=== PATIENT | female | born 1965 ===

== ENCOUNTER 2019-11-27 23:35 | Inpatient (IN) ==
[2019-11-28] MEDS ORDERED: ONDANSETRON 4 MG/2 ML VIAL IV PRN (02:17)
[2019-11-28] MEDS ORDERED: PANTOPRAZOLE 40 MG VIAL IV STA (02:47)
[2019-11-28] MEDS: MORPHINE 4 MG/1 ML VIAL IV PRN (03:03)
[2019-11-28] MEDS ORDERED: PNEUMOCOCCAL VACCINE (23 VALENT) 0.5 ML VIAL IM ONE (03:20)
[2019-11-28] MEDS ORDERED: DOCUSATE SODIUM 100 MG CAPSULE PO PRN (03:40)
[2019-11-28] MEDS ORDERED: GLUCAGON 1 MG VIAL IM PRN (03:40)
[2019-11-28] MEDS ORDERED: DEXTROSE 50% 25 GM/50 ML VIAL IV PRN (03:40)
[2019-11-28] MEDS ORDERED: DEXTRAN HYPROMELLOSE BOTH EYES PRN (04:13)
[2019-11-28] MEDS ORDERED: guaiFENesin 200 MG/10 ML UDCUP PO PRN (04:13)
[2019-11-28] MEDS ORDERED: LOPERAMIDE 2 MG CAPSULE PO PRN (04:13)
[2019-11-28] MEDS ORDERED: MAGNESIUM SULF RIDER 4 GM in PREMIX 1 EACH IV PRN (04:14)
[2019-11-28] MEDS ORDERED: HYDROmorphone 2 MG/1 ML VIAL IV PRN (04:36)
[2019-11-28] MEDS: ENOXAPARIN 80 MG/0.8 ML SYRINGE SUBCUT SCH ×2 (05:00→17:24)
[2019-11-28] MEDS: PIPERACILLIN/TAZOBACTAM 3,375 MG in SODIUM CHLORIDE 0.9% 100 ML IV SCH ×3 (05:00→20:44)
[2019-11-28] MEDS: SODIUM CHLORIDE 0.9% 1,000 ML IV SCH ×2 (05:27→22:33)
[2019-11-28] MEDS: FLUTICASONE 50 MCG NASAL SPRAY 16 GM BOTTLE BOTH NARES SCH (08:30)
[2019-11-28] MEDS: lisinopriL 20 MG TABLET PO SCH (08:31)
[2019-11-28] MEDS: CHOLECALCIFEROL 1,000 UNIT TABLET PO SCH (08:31)
[2019-11-28] MEDS: GABAPENTIN 300 MG CAPSULE PO SCH ×3 (08:31→20:19)
[2019-11-28] MEDS: PANTOPRAZOLE 40 MG VIAL IV SCH (08:31)
[2019-11-28] MEDS: POTASSIUM CHLORIDE 20 MEQ TABLET PO SCH (08:32)
[2019-11-28] MEDS: CETIRIZINE 10 MG TABLET PO SCH (08:32)
[2019-11-28] MEDS: ASPIRIN CHEW 81 MG TABLET PO SCH (08:32)
[2019-11-28] MEDS: ZINC SULFATE 220 MG CAPSULE PO SCH (08:32)
[2019-11-28] MEDS: INSULIN LISPRO 100 UNIT/ML SUBCUT SCH ×4 (08:33→20:18)
[2019-11-28] MEDS: HYDROXYCHLOROQUINE 200 MG TABLET PO SCH ×2 (08:36→20:19)
[2019-11-28] MEDS: TOBRAMYCIN DEXAMETHASONE BOTH EYES SCH ×4 (08:54→21:32)
[2019-11-28] MEDS ORDERED: ENOXAPARIN 40 MG/0.4 ML SYRINGE SUBCUT SCH (09:00)
[2019-11-28] MEDS: ALBUTEROL INHALER 18 GM INH SCH ×3 (09:29→20:41)
[2019-11-28] MEDS: PROMETHAZINE INJ 25 MG in SODIUM CHLORIDE 0.9% 50 ML IV PRN (10:19)
[2019-11-28 10:46] LABS: Basophils % 0.2 % (0.0-0.8); Eosinophils % 0.2 % (0.00-10.9); Hemoglobin 12.6 GM/DL (12.0-16.0); Immature Granulocytes % 0.4 %; Immature Granulocytes Absolute 0.02 #; Lymphocytes # 1.2 10*3/uL (1.4-4.0); Lymphocytes % 24.3 % (21.3-54.2); Mean Corpuscular HGB Conc 34.1 GM/DL (32-36); Mean Corpuscular Volume 90.2 FL (87-102); Monocytes % 4.6 % (1.7-12.7); Neutrophils % 70.3 % (38.7-73.9); Platelet Count 159 T/CUMM (130-400); Red Cell Distribution Width 12.6 % (9.3-17.3); White Blood Count 4.8 T/CUMM (4-12)
[2019-11-28 11:09] LABS: Lymphocytes 21 % (20-55); Segmented Neutrophils 73 % (50-85); Total Cells Counted 100
[2019-11-28 11:10] LABS: Microcytosis Slight
[2019-11-28 11:13] LABS: Albumin 2.7 G/DL (3.4-5.0); Bilirubin,Total 1.2 MG/DL (0.2-1.0); Osmolality,Calculated 268.8 MOS/KG (273-304); Total Protein 7.6 G/DL (6.4-8.3)
[2019-11-28 11:25] LABS: Ferritin 1485.6 ng/ml (8-252)
[2019-11-28] MEDS: MAGNESIUM SULF RIDER 2 GM in PREMIX 1 EACH IV PRN (11:43)
[2019-11-28] MEDS: POTASSIUM CHLORIDE RIDER 10 MEQ in PREMIX 1 EACH IV PRN ×4 (16:03→20:18)
[2019-11-28] MEDS: ACETAMINOPHEN 325 MG TABLET PO PRN (16:21)
[2019-11-28] MEDS: INSULIN GLARGINE 100 UNIT/ML SUBCUT SCH (20:18)
[2019-11-28] MEDS: SIMVASTATIN 20 MG TABLET PO SCH (20:19)
[2019-11-29] MEDS: ALBUTEROL INHALER 18 GM INH SCH ×4 (01:55→20:53)
[2019-11-29] MEDS: ENOXAPARIN 80 MG/0.8 ML SYRINGE SUBCUT SCH (04:40)
[2019-11-29] MEDS: PIPERACILLIN/TAZOBACTAM 3,375 MG in SODIUM CHLORIDE 0.9% 100 ML IV SCH ×2 (04:40→12:32)
[2019-11-29 05:40] LABS: Basophils % 0.2 % (0.0-0.8); Eosinophils % 0.4 % (0.00-10.9); Hematocrit 33.4 VOL% (35.7-47.0); Hemoglobin 11.1 GM/DL (12.0-16.0); Immature Granulocytes % 0.6 %; Immature Granulocytes Absolute 0.03 #; Lymphocytes # 1.1 10*3/uL (1.4-4.0); Lymphocytes % 21.5 % (21.3-54.2); Mean Corpuscular HGB Conc 33.2 GM/DL (32-36); Mean Platelet Volume 9.7 FL (9.6-12.0); Monocytes % 5.3 % (1.7-12.7); Platelet Count 170 T/CUMM (130-400); Red Blood Count 3.63 MC/CUMM (3.8-5.5); Red Cell Distribution Width 12.6 % (9.3-17.3); White Blood Count 5.3 T/CUMM (4-12)
[2019-11-29 06:00] LABS: Anisocytosis Slight; Platelet Estimate Normal
[2019-11-29 06:01] LABS: Calcium 7.7 MG/DL (8.5-10.1); Osmolality,Calculated 274.5 MOS/KG (273-304)
[2019-11-29] MEDS: POTASSIUM CHLORIDE RIDER 10 MEQ in PREMIX 1 EACH IV PRN (06:15)
[2019-11-29] MEDS: INSULIN LISPRO 100 UNIT/ML SUBCUT SCH ×4 (08:14→20:46)
[2019-11-29] MEDS: CETIRIZINE 10 MG TABLET PO SCH (08:24)
[2019-11-29] MEDS: PANTOPRAZOLE 40 MG VIAL IV SCH (08:24)
[2019-11-29] MEDS: ASPIRIN CHEW 81 MG TABLET PO SCH (08:24)
[2019-11-29] MEDS: POTASSIUM CHLORIDE 20 MEQ TABLET PO SCH (08:24)
[2019-11-29] MEDS: GABAPENTIN 300 MG CAPSULE PO SCH ×3 (08:24→20:47)
[2019-11-29] MEDS: CHOLECALCIFEROL 1,000 UNIT TABLET PO SCH (08:24)
[2019-11-29] MEDS: lisinopriL 20 MG TABLET PO SCH (08:24)
[2019-11-29] MEDS: FLUTICASONE 50 MCG NASAL SPRAY 16 GM BOTTLE BOTH NARES SCH (08:25)
[2019-11-29] MEDS: TOBRAMYCIN DEXAMETHASONE BOTH EYES SCH ×4 (08:35→20:54)
[2019-11-29] MEDS ORDERED: HYDROXYCHLOROQUINE 200 MG TABLET PO SCH (09:00)
[2019-11-29] MEDS ORDERED: BENZOCAINE/MENTHOL LOZENGE 18/BOX PO PRN (09:03)
[2019-11-29] MEDS: SODIUM CHLORIDE 0.9% 1,000 ML IV SCH ×3 (10:42→20:47)
[2019-11-29] MEDS: AZITHROMYCIN 250 MG TABLET PO SCH (16:11)
[2019-11-29] MEDS: ACETAMINOPHEN 325 MG TABLET PO PRN ×2 (16:12→23:41)
[2019-11-29] MEDS: PROMETHAZINE INJ 25 MG in SODIUM CHLORIDE 0.9% 50 ML IV PRN (17:22)
[2019-11-29] MEDS: SIMVASTATIN 20 MG TABLET PO SCH (20:47)
[2019-11-29] MEDS: INSULIN GLARGINE 100 UNIT/ML SUBCUT SCH (20:49)
[2019-11-30] MEDS: ALBUTEROL INHALER 18 GM INH SCH ×4 (01:30→19:38)
[2019-11-30 05:47] LABS: Basophils % 0.2 % (0.0-0.8); Eosinophils % 0.4 % (0.00-10.9); Hematocrit 31.7 VOL% (35.7-47.0); Hemoglobin 10.4 GM/DL (12.0-16.0); Immature Granulocytes % 0.6 %; Immature Granulocytes Absolute 0.03 #; Lymphocytes # 1.1 10*3/uL (1.4-4.0); Lymphocytes % 20.5 % (21.3-54.2); Mean Corpuscular HGB Conc 32.8 GM/DL (32-36); Mean Corpuscular Volume 92.4 FL (87-102); Mean Platelet Volume 9.5 FL (9.6-12.0); Monocytes % 4.5 % (1.7-12.7); Neutrophils % 73.8 % (38.7-73.9); Platelet Count 192 T/CUMM (130-400); Red Blood Count 3.43 MC/CUMM (3.8-5.5); Red Cell Distribution Width 12.7 % (9.3-17.3); White Blood Count 5.1 T/CUMM (4-12)
[2019-11-30 06:02] LABS: Calcium 7.6 MG/DL (8.5-10.1); Osmolality,Calculated 279.1 MOS/KG (273-304)
[2019-11-30] MEDS: INSULIN LISPRO 100 UNIT/ML SUBCUT SCH ×4 (08:06→20:33)
[2019-11-30] MEDS: PANTOPRAZOLE 40 MG VIAL IV SCH (09:41)
[2019-11-30] MEDS: cefTRIAXone 1,000 MG in SYRINGE 1 EACH IV SCH (09:41)
[2019-11-30] MEDS: FLUTICASONE 50 MCG NASAL SPRAY 16 GM BOTTLE BOTH NARES SCH (09:41)
[2019-11-30] MEDS: ZINC SULFATE 220 MG CAPSULE PO SCH (09:42)
[2019-11-30] MEDS: CETIRIZINE 10 MG TABLET PO SCH (09:42)
[2019-11-30] MEDS: CHOLECALCIFEROL 1,000 UNIT TABLET PO SCH (09:42)
[2019-11-30] MEDS: lisinopriL 20 MG TABLET PO SCH (09:42)
[2019-11-30] MEDS: AZITHROMYCIN 250 MG TABLET PO SCH (09:42)
[2019-11-30] MEDS: POTASSIUM CHLORIDE 20 MEQ TABLET PO SCH (09:42)
[2019-11-30] MEDS: ASPIRIN CHEW 81 MG TABLET PO SCH (09:43)
[2019-11-30] MEDS: TOBRAMYCIN DEXAMETHASONE BOTH EYES SCH ×4 (09:43→20:33)
[2019-11-30] MEDS: GABAPENTIN 300 MG CAPSULE PO SCH ×3 (09:43→20:32)
[2019-11-30] MEDS: ENOXAPARIN 40 MG/0.4 ML SYRINGE SUBCUT SCH (09:44)
[2019-11-30] MEDS: SODIUM CHLORIDE 0.9% 1,000 ML IV SCH ×2 (09:44→10:04)
[2019-11-30] MEDS: ACETAMINOPHEN 325 MG TABLET PO PRN (16:24)
[2019-11-30] MEDS: SIMVASTATIN 20 MG TABLET PO SCH (20:32)
[2019-11-30] MEDS: INSULIN GLARGINE 100 UNIT/ML SUBCUT SCH (20:33)
[2019-11-30] MEDS: MORPHINE 4 MG/1 ML VIAL IV PRN (22:01)
[2019-11-30] MEDS ORDERED: CYCLOBENZAPRINE 10 MG TABLET PO ONE (22:42)
[2019-11-30] MEDS ORDERED: ALPRAZolam 0.25 MG TABLET PO ONE (23:09)
[2019-12-01] MEDS: ACETAMINOPHEN 325 MG TABLET PO PRN ×2 (00:01→11:10)
[2019-12-01] MEDS: ALBUTEROL INHALER 18 GM INH SCH ×4 (01:10→21:32)
[2019-12-01] MEDS ORDERED: ALPRAZolam 0.25 MG TABLET PO ONE (03:30)
[2019-12-01 06:15] LABS: Basophils % 0.1 % (0.0-0.8); Hematocrit 35.2 VOL% (35.7-47.0); Hemoglobin 11.7 GM/DL (12.0-16.0); Immature Granulocytes % 0.6 %; Immature Granulocytes Absolute 0.05 #; Lymphocytes # 0.8 10*3/uL (1.4-4.0); Lymphocytes % 8.7 % (21.3-54.2); Mean Corpuscular HGB Conc 33.2 GM/DL (32-36); Mean Corpuscular Volume 91.4 FL (87-102); Mean Platelet Volume 9.5 FL (9.6-12.0); Monocytes % 2.4 % (1.7-12.7); Neutrophils % 88.2 % (38.7-73.9); Platelet Count 227 T/CUMM (130-400); Red Blood Count 3.85 MC/CUMM (3.8-5.5); Red Cell Distribution Width 12.4 % (9.3-17.3); White Blood Count 9.1 T/CUMM (4-12)
[2019-12-01 06:37] LABS: Calcium 8.3 MG/DL (8.5-10.1); Osmolality,Calculated 270.1 MOS/KG (273-304)
[2019-12-01 08:51] LABS: Ferritin 1329.9 ng/ml (8-252)
[2019-12-01] MEDS: ENOXAPARIN 40 MG/0.4 ML SYRINGE SUBCUT SCH (09:13)
[2019-12-01] MEDS: lisinopriL 20 MG TABLET PO SCH (09:14)
[2019-12-01] MEDS: CHOLECALCIFEROL 1,000 UNIT TABLET PO SCH (09:14)
[2019-12-01] MEDS: GABAPENTIN 300 MG CAPSULE PO SCH ×3 (09:14→21:33)
[2019-12-01] MEDS: AZITHROMYCIN 250 MG TABLET PO SCH (09:14)
[2019-12-01] MEDS: CETIRIZINE 10 MG TABLET PO SCH (09:14)
[2019-12-01] MEDS: ASPIRIN CHEW 81 MG TABLET PO SCH (09:14)
[2019-12-01] MEDS: PANTOPRAZOLE 40 MG VIAL IV SCH (09:15)
[2019-12-01] MEDS: POTASSIUM CHLORIDE 20 MEQ TABLET PO SCH (09:15)
[2019-12-01] MEDS: cefTRIAXone 1,000 MG in SYRINGE 1 EACH IV SCH (09:15)
[2019-12-01] MEDS: FLUTICASONE 50 MCG NASAL SPRAY 16 GM BOTTLE BOTH NARES SCH (09:16)
[2019-12-01] MEDS: INSULIN LISPRO 100 UNIT/ML SUBCUT SCH ×4 (09:16→21:32)
[2019-12-01] MEDS: TOBRAMYCIN DEXAMETHASONE BOTH EYES SCH ×5 (09:17→21:33)
[2019-12-01] MEDS: SODIUM CHLORIDE 0.9% 1,000 ML IV SCH ×2 (11:20→14:26)
[2019-12-01 15:10] LABS: INR 1.4; PT Patient Result 14.4 SECS (9.8-11.9)
[2019-12-01] MEDS: INSULIN GLARGINE 100 UNIT/ML SUBCUT SCH (21:33)
[2019-12-01] MEDS: SIMVASTATIN 20 MG TABLET PO SCH (21:33)
[2019-12-02] MEDS: ACETAMINOPHEN 325 MG TABLET PO PRN (00:15)
[2019-12-02] MEDS: SODIUM CHLORIDE 0.9% 1,000 ML IV SCH ×3 (00:46→18:11)
[2019-12-02] MEDS: ALBUTEROL INHALER 18 GM INH SCH ×4 (01:14→18:40)
[2019-12-02 03:59] LABS: Ferritin 1044.8 ng/ml (8-252)
[2019-12-02 04:48] LABS: Calcium 7.5 MG/DL (8.5-10.1); Osmolality,Calculated 276.4 MOS/KG (273-304)
[2019-12-02] MEDS: PANTOPRAZOLE 40 MG VIAL IV SCH (08:16)
[2019-12-02] MEDS: ENOXAPARIN 40 MG/0.4 ML SYRINGE SUBCUT SCH ×2 (08:17→21:00)
[2019-12-02] MEDS: AZITHROMYCIN 250 MG TABLET PO SCH (08:17)
[2019-12-02] MEDS: cefTRIAXone 1,000 MG in SYRINGE 1 EACH IV SCH (08:17)
[2019-12-02] MEDS: CETIRIZINE 10 MG TABLET PO SCH (08:17)
[2019-12-02] MEDS: lisinopriL 20 MG TABLET PO SCH (08:17)
[2019-12-02] MEDS: ASPIRIN CHEW 81 MG TABLET PO SCH (08:17)
[2019-12-02] MEDS: CHOLECALCIFEROL 1,000 UNIT TABLET PO SCH (08:18)
[2019-12-02] MEDS: POTASSIUM CHLORIDE 20 MEQ TABLET PO SCH (08:18)
[2019-12-02] MEDS: GABAPENTIN 300 MG CAPSULE PO SCH ×3 (08:18→21:00)
[2019-12-02] MEDS: FLUTICASONE 50 MCG NASAL SPRAY 16 GM BOTTLE BOTH NARES SCH (08:27)
[2019-12-02] MEDS: ZINC SULFATE 220 MG CAPSULE PO SCH (08:27)
[2019-12-02] MEDS: TOBRAMYCIN DEXAMETHASONE BOTH EYES SCH ×5 (08:28→23:06)
[2019-12-02] MEDS: POTASSIUM CHLORIDE RIDER 10 MEQ in PREMIX 1 EACH IV PRN (08:40)
[2019-12-02] MEDS: INSULIN LISPRO 100 UNIT/ML SUBCUT SCH ×3 (09:05→17:30)
[2019-12-02 10:34] LABS: Basophils % 0.2 % (0.0-0.8); Eosinophils % 0.2 % (0.00-10.9); Hematocrit 34.8 VOL% (35.7-47.0); Hemoglobin 11.5 GM/DL (12.0-16.0); Immature Granulocytes % 0.5 %; Immature Granulocytes Absolute 0.05 #; Lymphocytes # 0.7 10*3/uL (1.4-4.0); Lymphocytes % 7.3 % (21.3-54.2); Mean Corpuscular Volume 91.3 FL (87-102); Mean Platelet Volume 9.7 FL (9.6-12.0); Monocytes % 2.5 % (1.7-12.7); Neutrophils % 89.3 % (38.7-73.9); Platelet Count 233 T/CUMM (130-400); Red Blood Count 3.81 MC/CUMM (3.8-5.5); Red Cell Distribution Width 12.9 % (9.3-17.3); White Blood Count 10.1 T/CUMM (4-12)
[2019-12-02] MEDS ORDERED: ETOMIDATE 20 MG/10 ML VIAL IV ONE ×2 (10:54→10:58)
[2019-12-02] MEDS ORDERED: SUCCINYLCHOLINE 200 MG/10 ML VIAL ONE (10:55)
[2019-12-02] MEDS ORDERED: SUCCINYLCHOLINE 200 MG/10 ML VIAL IV ONE (10:59)
[2019-12-02 11:01] LABS: Hypochromasia 1+
[2019-12-02 11:02] LABS: Microcytosis Slight; Platelet Estimate Adequate
[2019-12-02] MEDS ORDERED: NOREPINEPHRINE 4 MG/4 ML VIAL IV ONE (12:05)
[2019-12-02] MEDS: NOREPINEPHRINE 8 MG in SODIUM CHLORIDE 0.9% 242 ML IV PRN ×4 (12:10→23:23)
[2019-12-02] MEDS ORDERED: SODIUM CHLORIDE 0.9% 500 ML IV ONE ×2 (12:25→22:42)
[2019-12-02 12:26] LABS: ABG Base Excess -14.5 MMOL/L (-2.5-2.5); ABG HCO3 13.1 MMOL/L (20-26); ABG Oxygen Saturation 86.2 % (95-100); ABG PCO2 35.3 MM HG (35-48); ABG TCO2 12.3 MMOL/L (23-27)
[2019-12-02 12:30] LABS: ABG PH 7.179 (7.35-7.45)
[2019-12-02] MEDS: fentaNYL INJ 1,250 MCG in SODIUM CHLORIDE 0.9% 225 ML IV PRN (15:09)
[2019-12-02] MEDS: DEXAMETHASONE 4 MG/1 ML VIAL IV SCH (17:45)
[2019-12-02] MEDS ORDERED: SODIUM BICARBONATE 50 MEQ/50 ML VIAL IV ONE ×2 (17:50)
[2019-12-02] MEDS ORDERED: LORazepam 2 MG/1 ML VIAL ONE (18:11)
[2019-12-02] MEDS ORDERED: LORazepam 2 MG/1 ML VIAL IV ONE (18:15)
[2019-12-02 19:24] LABS: INR 1.9; PT Patient Result 19.1 SECS (9.8-11.9)
[2019-12-02 19:28] LABS: Alanine Aminotransferase 85 U/L (13-56); Albumin 1.7 G/DL (3.4-5.0); Alkaline Phosphatase 134 U/L (45-117); Aspartate Amino Transferase 418 U/L (0-37); Blood Urea Nitrogen 20 MG/DL (7-18); Calcium 7.6 MG/DL (8.5-10.1); Estimated Glom Filtration Rate 34 ML/MIN; Glucose 111 MG/DL (74-106); Osmolality,Calculated 286.1 MOS/KG (273-304); Total Protein 6.3 G/DL (6.4-8.3)
[2019-12-02] MEDS ORDERED: DEXTROSE 50% 25 GM/50 ML VIAL IV PRN (19:52)
[2019-12-02] MEDS ORDERED: GLUCAGON 1 MG VIAL IM PRN (19:52)
[2019-12-02] MEDS: SIMVASTATIN 20 MG TABLET PO SCH (21:00)
[2019-12-02] MEDS ORDERED: PHENYLEPHRINE DRIP 40 MG/250 ML PREMIX IV ONE (22:27)
[2019-12-02] MEDS ORDERED: PHENYLEPHRINE DRIP 40 MG/250 ML PREMIX IV PRN (22:27)
[2019-12-02] MEDS: INSULIN GLARGINE 100 UNIT/ML SUBCUT SCH (23:02)
[2019-12-03] MEDS: INSULIN LISPRO 100 UNIT/ML SUBCUT SCH ×4 (00:18→17:35)
[2019-12-03] MEDS: ALBUTEROL INHALER 18 GM INH SCH ×3 (01:03→12:11)
[2019-12-03] MEDS: SODIUM CHLORIDE 0.9% 1,000 ML IV SCH ×2 (01:04→05:32)
[2019-12-03] MEDS: fentaNYL INJ 1,250 MCG in SODIUM CHLORIDE 0.9% 225 ML IV PRN ×3 (01:16→17:56)
[2019-12-03] MEDS ORDERED: ALBUMIN 5% 25 GM in PREMIX 1 EACH IV ONE ×2 (01:47→03:46)
[2019-12-03] MEDS: ACETAMINOPHEN 325 MG TABLET PO PRN (02:15)
[2019-12-03] MEDS ORDERED: PHENYLEPHRINE INJ 160 MG in SODIUM CHLORIDE 0.9% 234 ML IV PRN (03:00)
[2019-12-03] MEDS: NOREPINEPHRINE 16 MG in SODIUM CHLORIDE 0.9% 234 ML IV PRN ×2 (03:01→11:33)
[2019-12-03 03:35] LABS: ABG Base Excess -16.6 MMOL/L (-2.5-2.5); ABG HCO3 11.9 MMOL/L (20-26); ABG Oxygen Saturation 98.1 % (95-100); ABG PCO2 26.8 MM HG (35-48); ABG TCO2 9.8 MMOL/L (23-27)
[2019-12-03 03:42] LABS: ABG PH 7.198 (7.35-7.45)
[2019-12-03 04:35] LABS: Basophils % 0.2 % (0.0-0.8); Hematocrit 28.4 VOL% (35.7-47.0); Hemoglobin 8.9 GM/DL (12.0-16.0); Immature Granulocytes % 2.1 %; Mean Corpuscular HGB Conc 31.3 GM/DL (32-36); Mean Corpuscular Volume 97.6 FL (87-102); Mean Platelet Volume 10.9 FL (9.6-12.0); Monocytes % 2.5 % (1.7-12.7); NRBC # 0.25 10*3/uL; Neutrophils % 88.2 % (38.7-73.9); Platelet Count 216 T/CUMM (130-400); Red Blood Count 2.91 MC/CUMM (3.8-5.5); Red Cell Distribution Width 14.2 % (9.3-17.3); White Blood Count 14.6 T/CUMM (4-12)
[2019-12-03 04:47] LABS: Albumin 2.3 G/DL (3.4-5.0); Bilirubin,Total 1.2 MG/DL (0.2-1.0); Calcium 7.3 MG/DL (8.5-10.1); Osmolality,Calculated 293.1 MOS/KG (273-304); Total Protein 6.4 G/DL (6.4-8.3)
[2019-12-03 05:46] LABS: Band Neutrophils 3 % (0-10); Hypochromasia Slight; Lymphocytes 3 % (20-55); Nucleated Red Blood Cells 3 (0-5); Ovalocytes Slight; Platelet Estimate Adequate; Segmented Neutrophils 93 % (50-85); Total Cells Counted 100
[2019-12-03] MEDS ORDERED: SODIUM BICARBONATE 50 MEQ/50 ML VIAL IV ONE (06:59)
[2019-12-03] MEDS ORDERED: SODIUM BICARB INJ 150 MEQ in DEXTROSE 5% 850 ML IV SCH (08:00)
[2019-12-03] MEDS: PANTOPRAZOLE 40 MG VIAL IV SCH (09:52)
[2019-12-03] MEDS: ENOXAPARIN 40 MG/0.4 ML SYRINGE SUBCUT SCH (09:53)
[2019-12-03] MEDS: GABAPENTIN 300 MG CAPSULE PO SCH ×2 (09:53→15:41)
[2019-12-03] MEDS: AZITHROMYCIN 250 MG TABLET PO SCH (09:53)
[2019-12-03] MEDS: CETIRIZINE 10 MG TABLET PO SCH (09:53)
[2019-12-03] MEDS: cefTRIAXone 1,000 MG in SYRINGE 1 EACH IV SCH (09:53)
[2019-12-03] MEDS: ASPIRIN CHEW 81 MG TABLET PO SCH (09:54)
[2019-12-03] MEDS: POTASSIUM CHLORIDE 20 MEQ TABLET PO SCH (09:54)
[2019-12-03] MEDS: CHOLECALCIFEROL 1,000 UNIT TABLET PO SCH (09:54)
[2019-12-03] MEDS: TOBRAMYCIN DEXAMETHASONE BOTH EYES SCH ×4 (11:31→21:23)
[2019-12-03 16:46] LABS: ABG HCO3 17.9 MMOL/L (20-26); ABG Oxygen Saturation 99.4 % (95-100); ABG PCO2 24.1 MM HG (35-48); ABG PH 7.414 (7.35-7.45); ABG TCO2 14.2 MMOL/L (23-27)
[2019-12-03] MEDS: DEXAMETHASONE 4 MG/1 ML VIAL IV SCH (16:48)
[2019-12-03] MEDS: HEPARIN DRIP 25,000 UNITS/500 ML PREMIX IV SCH (16:49)
[2019-12-03 16:57] LABS: Calcium 6.7 MG/DL (8.5-10.1)
[2019-12-03] MEDS: SODIUM BICARB INJ 100 MEQ in DEXTROSE 5% 1,000 ML IV SCH (17:42)
[2019-12-03] MEDS: GABAPENTIN 50 MG/ML 30 ML/BOTTLE NG SCH (21:23)
[2019-12-03] MEDS: INSULIN GLARGINE 100 UNIT/ML SUBCUT SCH (21:23)
[2019-12-04] MEDS: ALBUTEROL INHALER 18 GM INH SCH ×5 (00:30→21:50)
[2019-12-04] MEDS: INSULIN LISPRO 100 UNIT/ML SUBCUT SCH ×4 (00:42→22:11)
[2019-12-04 00:54] LABS: INR 1.7
[2019-12-04 00:56] LABS: Partial Thromboplastin Time 179.6 SECS (23.9-33.8)
[2019-12-04] MEDS: SODIUM BICARB INJ 100 MEQ in DEXTROSE 5% 1,000 ML IV SCH ×2 (02:56→02:58)
[2019-12-04] MEDS: fentaNYL INJ 1,250 MCG in SODIUM CHLORIDE 0.9% 225 ML IV PRN ×3 (03:17→21:50)
[2019-12-04 05:37] LABS: ABG Base Excess 0.3 MMOL/L (-2.5-2.5); ABG HCO3 20.6 MMOL/L (20-26); ABG Oxygen Saturation 90.3 % (95-100); ABG PCO2 21.1 MM HG (35-48); ABG TCO2 21.2 MMOL/L (23-27)
[2019-12-04 05:41] LABS: ABG PH 7.607 (7.35-7.45); Basophils % 0.1 % (0.0-0.8); Hematocrit 21.6 VOL% (35.7-47.0); Hemoglobin 7.7 GM/DL (12.0-16.0); Immature Granulocytes % 0.8 %; Immature Granulocytes Absolute 0.07 #; Lymphocytes # 0.6 10*3/uL (1.4-4.0); Lymphocytes % 6.7 % (21.3-54.2); Mean Corpuscular HGB Conc 35.6 GM/DL (32-36); Mean Corpuscular Volume 87.4 FL (87-102); Mean Platelet Volume 10.9 FL (9.6-12.0); Monocytes % 3.2 % (1.7-12.7); NRBC # 0.15 10*3/uL; Neutrophils % 89.2 % (38.7-73.9); Platelet Count 136 T/CUMM (130-400); Red Blood Count 2.47 MC/CUMM (3.8-5.5); Red Cell Distribution Width 13.6 % (9.3-17.3); White Blood Count 8.3 T/CUMM (4-12)
[2019-12-04 06:09] LABS: Calcium 6.6 MG/DL (8.5-10.1); Osmolality,Calculated 308.3 MOS/KG (273-304)
[2019-12-04] MEDS ORDERED: INSULIN REGULAR 100 UNIT/ML IV ONE (06:19)
[2019-12-04] MEDS ORDERED: SODIUM BICARB INJ 100 MEQ in STERILE WATER INJ 1,000 ML IV SCH (06:30)
[2019-12-04 06:56] LABS: INR 1.5; PT Patient Result 16.1 SECS (9.8-11.9); Partial Thromboplastin Time 80.9 SECS (23.9-33.8)
[2019-12-04] MEDS: GABAPENTIN 50 MG/ML 30 ML/BOTTLE NG SCH ×3 (09:18→21:50)
[2019-12-04] MEDS: ASPIRIN CHEW 81 MG TABLET PO SCH (09:18)
[2019-12-04] MEDS: cefTRIAXone 1,000 MG in SYRINGE 1 EACH IV SCH (09:18)
[2019-12-04] MEDS: POTASSIUM CHLORIDE 20 MEQ TABLET PO SCH (09:18)
[2019-12-04] MEDS: CETIRIZINE 10 MG TABLET PO SCH (09:18)
[2019-12-04] MEDS: CHOLECALCIFEROL 1,000 UNIT TABLET PO SCH (09:18)
[2019-12-04] MEDS: PANTOPRAZOLE 40 MG VIAL IV SCH (09:18)
[2019-12-04] MEDS: TOBRAMYCIN DEXAMETHASONE BOTH EYES SCH ×4 (10:25→21:50)
[2019-12-04 12:25] LABS: INR 1.4
[2019-12-04] MEDS: BISACODYL 5 MG TABLET PO SCH (12:56)
[2019-12-04] MEDS: DEXAMETHASONE 4 MG/1 ML VIAL IV SCH (16:33)
[2019-12-04] MEDS ORDERED: INSULIN GLARGINE 100 UNIT/ML SUBCUT SCH (18:32)
[2019-12-04] MEDS: MORPHINE 4 MG/1 ML VIAL IV PRN (21:50)
[2019-12-04] MEDS: HEPARIN DRIP 25,000 UNITS/500 ML PREMIX IV SCH (23:15)
[2019-12-05] MEDS: INSULIN LISPRO 100 UNIT/ML SUBCUT SCH ×5 (01:15→23:40)
[2019-12-05] MEDS: ALBUTEROL INHALER 18 GM INH SCH ×4 (03:06→20:30)
[2019-12-05 04:35] LABS: ABG Base Excess 1.9 MMOL/L (-2.5-2.5); ABG HCO3 24.2 MMOL/L (20-26); ABG Oxygen Saturation 96.6 % (95-100); ABG PCO2 29.5 MM HG (35-48); ABG PH 7.532 (7.35-7.45); ABG PO2 92.6 MM HG (80-95); ABG TCO2 25.1 MMOL/L (23-27)
[2019-12-05 04:48] LABS: Basophils % 0.1 % (0.0-0.8); Hematocrit 25.5 VOL% (35.7-47.0); Hemoglobin 8.7 GM/DL (12.0-16.0); Immature Granulocytes % 1.1 %; Immature Granulocytes Absolute 0.12 #; Lymphocytes # 0.5 10*3/uL (1.4-4.0); Lymphocytes % 4.3 % (21.3-54.2); Mean Corpuscular HGB Conc 34.1 GM/DL (32-36); Mean Corpuscular Volume 89.2 FL (87-102); Mean Platelet Volume 10.9 FL (9.6-12.0); Monocytes % 3.2 % (1.7-12.7); NRBC # 0.08 10*3/uL; Neutrophils % 91.3 % (38.7-73.9); Platelet Count 117 T/CUMM (130-400); Red Blood Count 2.86 MC/CUMM (3.8-5.5); Red Cell Distribution Width 13.5 % (9.3-17.3)
[2019-12-05 04:56] LABS: Osmolality,Calculated 296.7 MOS/KG (273-304)
[2019-12-05 05:04] LABS: INR 1.3; PT Patient Result 13.5 SECS (9.8-11.9); Partial Thromboplastin Time 42.7 SECS (23.9-33.8)
[2019-12-05] MEDS: fentaNYL INJ 1,250 MCG in SODIUM CHLORIDE 0.9% 225 ML IV PRN ×3 (05:10→21:54)
[2019-12-05] MEDS: HEPARIN DRIP 25,000 UNITS/500 ML PREMIX IV SCH ×2 (05:35→16:36)
[2019-12-05] MEDS ORDERED: POTASSIUM CHLORIDE RIDER 10 MEQ in PREMIX 1 EACH IV PRN (06:05)
[2019-12-05] MEDS: MORPHINE 4 MG/1 ML VIAL IV PRN (06:19)
[2019-12-05] MEDS: POTASSIUM CHLORIDE RIDER 20 MEQ in PREMIX 1 EACH IV PRN ×3 (06:32→17:35)
[2019-12-05 06:38] LABS: Lymphocytes 1 % (20-55); Nucleated Red Blood Cells 2 (0-5); Segmented Neutrophils 96 % (50-85)
[2019-12-05 06:39] LABS: Platelet Estimate Adequate; Total Cells Counted 100
[2019-12-05] MEDS: PANTOPRAZOLE 40 MG VIAL IV SCH (08:31)
[2019-12-05] MEDS: ASPIRIN CHEW 81 MG TABLET PO SCH (08:31)
[2019-12-05] MEDS: CETIRIZINE 10 MG TABLET PO SCH (08:31)
[2019-12-05] MEDS: cefTRIAXone 1,000 MG in SYRINGE 1 EACH IV SCH (08:31)
[2019-12-05] MEDS: GABAPENTIN 50 MG/ML 30 ML/BOTTLE NG SCH ×3 (08:31→20:30)
[2019-12-05] MEDS: BISACODYL 5 MG TABLET PO SCH (08:31)
[2019-12-05] MEDS: POTASSIUM CHLORIDE 20 MEQ TABLET PO SCH (08:31)
[2019-12-05] MEDS: CHOLECALCIFEROL 1,000 UNIT TABLET PO SCH (08:31)
[2019-12-05] MEDS: TOBRAMYCIN DEXAMETHASONE BOTH EYES SCH ×4 (08:32→21:02)
[2019-12-05] MEDS: amLODIPine 5 MG TABLET PO SCH (09:10)
[2019-12-05] MEDS: MAGNESIUM SULF RIDER 2 GM in PREMIX 1 EACH IV PRN (10:05)
[2019-12-05] MEDS: DEXAMETHASONE 4 MG/1 ML VIAL IV SCH (16:35)
[2019-12-05] MEDS: INSULIN GLARGINE 100 UNIT/ML SUBCUT SCH (20:30)
[2019-12-06] MEDS: fentaNYL INJ 1,250 MCG in SODIUM CHLORIDE 0.9% 225 ML IV PRN ×3 (04:35→16:30)
[2019-12-06 05:09] LABS: Basophils % 0.1 % (0.0-0.8); Hematocrit 26.1 VOL% (35.7-47.0); Hemoglobin 8.8 GM/DL (12.0-16.0); Immature Granulocytes % 1.6 %; Immature Granulocytes Absolute 0.18 #; Lymphocytes # 0.5 10*3/uL (1.4-4.0); Mean Corpuscular HGB Conc 33.7 GM/DL (32-36); Mean Corpuscular Volume 91.6 FL (87-102); Mean Platelet Volume 11.2 FL (9.6-12.0); Monocytes % 3.7 % (1.7-12.7); Neutrophils % 90.6 % (38.7-73.9); Platelet Count 124 T/CUMM (130-400); Red Blood Count 2.85 MC/CUMM (3.8-5.5); Red Cell Distribution Width 13.4 % (9.3-17.3); White Blood Count 11.3 T/CUMM (4-12)
[2019-12-06 05:18] LABS: INR 1.2; PT Patient Result 12.4 SECS (9.8-11.9); Partial Thromboplastin Time 41.9 SECS (23.9-33.8)
[2019-12-06 05:31] LABS: Hypochromasia 1+; Lymphocytes 1 % (20-55); Microcytosis Slight; Segmented Neutrophils 96 % (50-85); Total Cells Counted 100
[2019-12-06 05:32] LABS: Platelet Estimate Adequate
[2019-12-06 05:38] LABS: Calcium 7.2 MG/DL (8.5-10.1); Osmolality,Calculated 296.3 MOS/KG (273-304)
[2019-12-06] MEDS: INSULIN LISPRO 100 UNIT/ML SUBCUT SCH ×4 (06:03→23:15)
[2019-12-06] MEDS: ALBUTEROL INHALER 18 GM INH SCH ×4 (06:04→18:12)
[2019-12-06] MEDS: POTASSIUM CHLORIDE RIDER 20 MEQ in PREMIX 1 EACH IV PRN (06:57)
[2019-12-06 08:09] LABS: ABG Base Excess 2.9 MMOL/L (-2.5-2.5); ABG HCO3 25.4 MMOL/L (20-26); ABG Oxygen Saturation 96.7 % (95-100); ABG PCO2 31.2 MM HG (35-48); ABG PH 7.529 (7.35-7.45); ABG PO2 92.7 MM HG (80-95); ABG TCO2 26.4 MMOL/L (23-27)
[2019-12-06] MEDS: carvediloL 25 MG TABLET PER TUBE SCH (08:28)
[2019-12-06] MEDS: ASPIRIN CHEW 81 MG TABLET PO SCH (08:28)
[2019-12-06] MEDS: BISACODYL 5 MG TABLET PO SCH (08:28)
[2019-12-06] MEDS: POTASSIUM CHLORIDE 20 MEQ TABLET PO SCH (08:28)
[2019-12-06] MEDS: CETIRIZINE 10 MG TABLET PO SCH (08:29)
[2019-12-06] MEDS: GABAPENTIN 50 MG/ML 30 ML/BOTTLE NG SCH ×3 (08:29→20:16)
[2019-12-06] MEDS: CHOLECALCIFEROL 1,000 UNIT TABLET PO SCH (08:29)
[2019-12-06] MEDS: TOBRAMYCIN DEXAMETHASONE BOTH EYES SCH ×5 (08:29→20:16)
[2019-12-06] MEDS: cefTRIAXone 1,000 MG in SYRINGE 1 EACH IV SCH (08:29)
[2019-12-06] MEDS: amLODIPine 5 MG TABLET PO SCH (08:29)
[2019-12-06] MEDS: PANTOPRAZOLE 40 MG VIAL IV SCH (09:26)
[2019-12-06] MEDS ORDERED: HEPARIN 5,000 UNIT/1 ML VIAL IV ONE (13:44)
[2019-12-06 15:05] LABS: ABG Base Excess 2.5 MMOL/L (-2.5-2.5); ABG HCO3 26.6 MMOL/L (20-26); ABG Oxygen Saturation 96.8 % (95-100); ABG PCO2 41.5 MM HG (35-48); ABG PH 7.423 (7.35-7.45); ABG PO2 89.9 MM HG (80-95); ABG TCO2 24.9 MMOL/L (23-27); Pt O2 Delivery Device Ventilator
[2019-12-06] MEDS: HEPARIN DRIP 25,000 UNITS/500 ML PREMIX IV SCH (15:29)
[2019-12-06] MEDS ORDERED: SODIUM CHLORIDE 0.9% 250 ML IV ONE (16:30)
[2019-12-06] MEDS: DEXAMETHASONE 4 MG/1 ML VIAL IV SCH (17:19)
[2019-12-06] MEDS: INSULIN GLARGINE 100 UNIT/ML SUBCUT SCH (20:16)
[2019-12-07] MEDS ORDERED: SODIUM CHLORIDE 0.9% 1,000 ML IV ONE
[2019-12-07] MEDS: ALBUTEROL INHALER 18 GM INH SCH ×4 (01:00→20:35)
[2019-12-07 05:31] LABS: Basophils % 0.1 % (0.0-0.8); Hematocrit 27.5 VOL% (35.7-47.0); Hemoglobin 8.8 GM/DL (12.0-16.0); Immature Granulocytes % 2.1 %; Immature Granulocytes Absolute 0.29 #; Lymphocytes # 0.6 10*3/uL (1.4-4.0); Lymphocytes % 4.2 % (21.3-54.2); Mean Corpuscular Volume 95.2 FL (87-102); Mean Platelet Volume 11.5 FL (9.6-12.0); Monocytes % 3.6 % (1.7-12.7); NRBC # 0.09 10*3/uL; Platelet Count 129 T/CUMM (130-400); Red Blood Count 2.89 MC/CUMM (3.8-5.5); Red Cell Distribution Width 13.9 % (9.3-17.3); White Blood Count 13.5 T/CUMM (4-12)
[2019-12-07 05:40] LABS: INR 1.1; PT Patient Result 11.9 SECS (9.8-11.9); Partial Thromboplastin Time 39.6 SECS (23.9-33.8)
[2019-12-07 05:47] LABS: Calcium 6.7 MG/DL (8.5-10.1)
[2019-12-07 06:07] LABS: Lymphocytes 3 % (20-55); Segmented Neutrophils 90 % (50-85); Total Cells Counted 100
[2019-12-07 06:08] LABS: Anisocytosis 1+; Hypochromasia 1+
[2019-12-07 06:36] LABS: Platelet Estimate Normal
[2019-12-07] MEDS: INSULIN LISPRO 100 UNIT/ML SUBCUT SCH ×3 (06:41→17:43)
[2019-12-07] MEDS: cefTRIAXone 1,000 MG in SYRINGE 1 EACH IV SCH (08:50)
[2019-12-07 08:51] LABS: ABG Base Excess 1.6 MMOL/L (-2.5-2.5); ABG HCO3 25.8 MMOL/L (20-26); ABG Oxygen Saturation 93.3 % (95-100); ABG PCO2 43.5 MM HG (35-48); ABG PH 7.396 (7.35-7.45); ABG PO2 68.6 MM HG (80-95); ABG TCO2 24.8 MMOL/L (23-27); Pt O2 Delivery Device Ventilator
[2019-12-07] MEDS: POTASSIUM CHLORIDE 20 MEQ TABLET PO SCH (09:50)
[2019-12-07] MEDS: GABAPENTIN 50 MG/ML 30 ML/BOTTLE NG SCH ×3 (09:50→20:35)
[2019-12-07] MEDS: PANTOPRAZOLE 40 MG VIAL IV SCH (09:50)
[2019-12-07] MEDS: ASPIRIN CHEW 81 MG TABLET PO SCH (09:50)
[2019-12-07] MEDS: carvediloL 25 MG TABLET PER TUBE SCH (09:50)
[2019-12-07] MEDS: BISACODYL 5 MG TABLET PO SCH (09:50)
[2019-12-07] MEDS: CETIRIZINE 10 MG TABLET PO SCH (09:51)
[2019-12-07] MEDS: CHOLECALCIFEROL 1,000 UNIT TABLET PO SCH (09:51)
[2019-12-07] MEDS: TOBRAMYCIN DEXAMETHASONE BOTH EYES SCH (09:51)
[2019-12-07] MEDS: amLODIPine 5 MG TABLET PO SCH (11:26)
[2019-12-07] MEDS: DEXAMETHASONE 4 MG/1 ML VIAL IV SCH (15:47)
[2019-12-07] MEDS: INSULIN GLARGINE 100 UNIT/ML SUBCUT SCH (20:35)
[2019-12-07] MEDS: HEPARIN DRIP 25,000 UNITS/500 ML PREMIX IV SCH (21:13)
[2019-12-07] MEDS: fentaNYL INJ 1,250 MCG in SODIUM CHLORIDE 0.9% 225 ML IV PRN (21:15)
[2019-12-08] MEDS: INSULIN LISPRO 100 UNIT/ML SUBCUT SCH ×5 (01:36→23:43)
[2019-12-08] MEDS: ALBUTEROL INHALER 18 GM INH SCH ×4 (01:38→20:27)
[2019-12-08 04:12] LABS: ABG Base Excess 0.9 MMOL/L (-2.5-2.5); ABG HCO3 26.4 MMOL/L (20-26); ABG Oxygen Saturation 88.3 % (95-100); ABG PCO2 46.1 MM HG (35-48); ABG PH 7.375 (7.35-7.45); ABG PO2 56.8 MM HG (80-95); ABG TCO2 27.8 MMOL/L (23-27); Allen Test Positive; Pt O2 Delivery Device Ventilator
[2019-12-08] MEDS: fentaNYL INJ 1,250 MCG in SODIUM CHLORIDE 0.9% 225 ML IV PRN ×2 (05:39→23:10)
[2019-12-08] MEDS: DEXTROSE 10% 250 ML BAG IV PRN ×4 (05:40→23:40)
[2019-12-08 05:48] LABS: Basophils % 0.1 % (0.0-0.8); Eosinophils # 0.2 10*3/uL (0.0-0.87); Eosinophils % 1.3 % (0.00-10.9); Hemoglobin 8.3 GM/DL (12.0-16.0); Immature Granulocytes % 1.7 %; Immature Granulocytes Absolute 0.24 #; Lymphocytes # 0.8 10*3/uL (1.4-4.0); Mean Corpuscular HGB Conc 30.7 GM/DL (32-36); Mean Corpuscular Volume 99.6 FL (87-102); Mean Platelet Volume 10.9 FL (9.6-12.0); Monocytes % 2.4 % (1.7-12.7); NRBC # 0.12 10*3/uL; Neutrophils % 88.5 % (38.7-73.9); Platelet Count 131 T/CUMM (130-400); Red Blood Count 2.71 MC/CUMM (3.8-5.5); Red Cell Distribution Width 14.1 % (9.3-17.3); White Blood Count 13.9 T/CUMM (4-12)
[2019-12-08 06:01] LABS: Calcium 7.2 MG/DL (8.5-10.1); Osmolality,Calculated 300.4 MOS/KG (273-304)
[2019-12-08 06:25] LABS: Band Neutrophils 1 % (0-10); Lymphocytes 2 % (20-55); Nucleated Red Blood Cells 1 (0-5); Segmented Neutrophils 95 % (50-85); Total Cells Counted 100
[2019-12-08 06:26] LABS: Hypochromasia 1+; Microcytosis Slight; Ovalocytes Slight; Platelet Estimate Normal
[2019-12-08] MEDS: ACETAMINOPHEN 325 MG TABLET PO PRN ×2 (06:30→20:51)
[2019-12-08] MEDS: MAGNESIUM SULF RIDER 2 GM in PREMIX 1 EACH IV PRN (07:09)
[2019-12-08] MEDS: PHENYLEPHRINE DRIP 40 MG/250 ML PREMIX IV PRN ×3 (07:12→16:26)
[2019-12-08] MEDS: GABAPENTIN 50 MG/ML 30 ML/BOTTLE NG SCH ×4 (08:08→20:29)
[2019-12-08] MEDS: POTASSIUM CHLORIDE 20 MEQ TABLET PO SCH (08:08)
[2019-12-08] MEDS: ASPIRIN CHEW 81 MG TABLET PO SCH (08:08)
[2019-12-08] MEDS: BISACODYL 5 MG TABLET PO SCH (08:08)
[2019-12-08] MEDS: PANTOPRAZOLE 40 MG VIAL IV SCH (08:08)
[2019-12-08] MEDS: CHOLECALCIFEROL 1,000 UNIT TABLET PO SCH (08:09)
[2019-12-08] MEDS: CETIRIZINE 10 MG TABLET PO SCH (08:09)
[2019-12-08] MEDS ORDERED: FUROSEMIDE 40 MG/4 ML VIAL IV ONE ×2 (09:20→14:00)
[2019-12-08 10:01] LABS: ABG Base Excess 0.2 MMOL/L (-2.5-2.5); ABG HCO3 26.6 MMOL/L (20-26); ABG Oxygen Saturation 85.6 % (95-100); ABG PCO2 52.3 MM HG (35-48); ABG PH 7.324 (7.35-7.45); ABG PO2 54.5 MM HG (80-95); ABG TCO2 28.2 MMOL/L (23-27); Allen Test Positive; Pt O2 Delivery Device Ventilator
[2019-12-08] MEDS ORDERED: DEXMEDETOMIDINE 200 MCG in SODIUM CHLORIDE 0.9% 48 ML IV PRN ×2 (10:19→10:52)
[2019-12-08] MEDS: cefTRIAXone 2,000 MG in SYRINGE 1 EACH IV SCH (11:35)
[2019-12-08 12:08] LABS: ABG Base Excess -0.8 MMOL/L (-2.5-2.5); ABG Oxygen Saturation 92.1 % (95-100); ABG PCO2 46.8 MM HG (35-48); ABG PH 7.346 (7.35-7.45); ABG PO2 66.9 MM HG (80-95); ABG TCO2 26.5 MMOL/L (23-27)
[2019-12-08] MEDS: DEXAMETHASONE 4 MG/1 ML VIAL IV SCH (17:09)
[2019-12-08] MEDS: DEXMEDETOMIDINE 400 MCG in SODIUM CHLORIDE 0.9% 96 ML IV PRN ×2 (17:33→23:45)
[2019-12-08] MEDS: HEPARIN DRIP 25,000 UNITS/500 ML PREMIX IV SCH ×2 (19:29→21:40)
[2019-12-08] MEDS: INSULIN GLARGINE 100 UNIT/ML SUBCUT SCH (20:29)
[2019-12-09] MEDS: ALBUTEROL INHALER 18 GM INH SCH ×4 (00:22→20:33)
[2019-12-09] MEDS: ACETAMINOPHEN 325 MG TABLET PO PRN (00:30)
[2019-12-09 04:52] LABS: Allen Test Positive; Pt O2 Delivery Device Ventilator
[2019-12-09 05:04] LABS: ABG Base Excess 1.3 MMOL/L (-2.5-2.5); ABG HCO3 25.5 MMOL/L (20-26); ABG Oxygen Saturation 91.1 % (95-100); ABG PCO2 43.3 MM HG (35-48); ABG PH 7.393 (7.35-7.45); ABG TCO2 24.7 MMOL/L (23-27); Basophils % 0.1 % (0.0-0.8); Eosinophils # 0.2 10*3/uL (0.0-0.87); Eosinophils % 2.3 % (0.00-10.9); Hematocrit 25.1 VOL% (35.7-47.0); Hemoglobin 7.8 GM/DL (12.0-16.0); Immature Granulocytes Absolute 0.21 #; Lymphocytes # 1.1 10*3/uL (1.4-4.0); Lymphocytes % 10.7 % (21.3-54.2); Mean Corpuscular HGB Conc 31.1 GM/DL (32-36); Mean Corpuscular Volume 98.8 FL (87-102); Mean Platelet Volume 11.5 FL (9.6-12.0); Monocytes % 1.5 % (1.7-12.7); NRBC # 0.02 10*3/uL; Neutrophils % 83.4 % (38.7-73.9); Platelet Count 113 T/CUMM (130-400); Red Blood Count 2.54 MC/CUMM (3.8-5.5); Red Cell Distribution Width 14.2 % (9.3-17.3); White Blood Count 10.4 T/CUMM (4-12)
[2019-12-09 05:27] LABS: Calcium 7.2 MG/DL (8.5-10.1); Osmolality,Calculated 293.8 MOS/KG (273-304)
[2019-12-09 05:31] LABS: Band Neutrophils 13 % (0-10); Eosinophils 1 % (0-10); Lymphocytes 7 % (20-55); Segmented Neutrophils 78 % (50-85); Total Cells Counted 100
[2019-12-09] MEDS: INSULIN LISPRO 100 UNIT/ML SUBCUT SCH ×3 (05:31→17:48)
[2019-12-09 05:32] LABS: Hypochromasia Slight; Microcytosis Slight
[2019-12-09] MEDS: MAGNESIUM SULF RIDER 2 GM in PREMIX 1 EACH IV PRN (06:06)
[2019-12-09] MEDS: DEXMEDETOMIDINE 400 MCG in SODIUM CHLORIDE 0.9% 96 ML IV PRN ×3 (06:41→22:03)
[2019-12-09] MEDS: fentaNYL INJ 1,250 MCG in SODIUM CHLORIDE 0.9% 225 ML IV PRN ×2 (09:15→20:38)
[2019-12-09] MEDS: CETIRIZINE 10 MG TABLET PO SCH (09:45)
[2019-12-09] MEDS: PANTOPRAZOLE 40 MG VIAL IV SCH (09:45)
[2019-12-09] MEDS: CHOLECALCIFEROL 1,000 UNIT TABLET PO SCH (09:45)
[2019-12-09] MEDS: ASPIRIN CHEW 81 MG TABLET PO SCH (09:45)
[2019-12-09] MEDS: BISACODYL 5 MG TABLET PO SCH (09:45)
[2019-12-09] MEDS: POTASSIUM CHLORIDE 20 MEQ TABLET PO SCH (09:45)
[2019-12-09] MEDS: GABAPENTIN 50 MG/ML 30 ML/BOTTLE NG SCH ×3 (09:45→20:34)
[2019-12-09] MEDS: cefTRIAXone 2,000 MG in SYRINGE 1 EACH IV SCH (10:47)
[2019-12-09] MEDS: VANCOMYCIN INJ 1,250 MG in SODIUM CHLORIDE 0.9% 250 ML IV SCH ×2 (12:15→23:43)
[2019-12-09] MEDS: MEROPENEM 500 MG in SODIUM CHLORIDE 0.9% 100 ML IV SCH ×3 (12:15→22:54)
[2019-12-09] MEDS: DEXAMETHASONE 4 MG/1 ML VIAL IV SCH (17:16)
[2019-12-09] MEDS: HEPARIN DRIP 25,000 UNITS/500 ML PREMIX IV SCH (17:18)
[2019-12-09] MEDS: INSULIN GLARGINE 100 UNIT/ML SUBCUT SCH (20:33)
[2019-12-10] MEDS: INSULIN LISPRO 100 UNIT/ML SUBCUT SCH ×4 (00:13→17:50)
[2019-12-10] MEDS: ALBUTEROL INHALER 18 GM INH SCH ×4 (00:32→18:17)
[2019-12-10] MEDS: HEPARIN DRIP 25,000 UNITS/500 ML PREMIX IV SCH ×2 (02:56→16:00)
[2019-12-10] MEDS: DEXMEDETOMIDINE 400 MCG in SODIUM CHLORIDE 0.9% 96 ML IV PRN ×2 (04:30→12:09)
[2019-12-10 04:40] LABS: ABG Base Excess 2.6 MMOL/L (-2.5-2.5); ABG HCO3 27.1 MMOL/L (20-26); ABG Oxygen Saturation 98.1 % (95-100); ABG PCO2 41.7 MM HG (35-48); ABG PH 7.431 (7.35-7.45); ABG PO2 120.1 MM HG (80-95); ABG TCO2 28.4 MMOL/L (23-27); Allen Test Positive; Pt O2 Delivery Device Ventilator
[2019-12-10 05:12] LABS: Basophils % 0.1 % (0.0-0.8); Eosinophils # 0.1 10*3/uL (0.0-0.87); Hematocrit 21.6 VOL% (35.7-47.0); Hemoglobin 6.7 GM/DL (12.0-16.0); Immature Granulocytes % 2.2 %; Immature Granulocytes Absolute 0.22 #; Lymphocytes # 0.6 10*3/uL (1.4-4.0); Lymphocytes % 5.7 % (21.3-54.2); Mean Platelet Volume 11.5 FL (9.6-12.0); Monocytes % 2.4 % (1.7-12.7); NRBC # 0.03 10*3/uL; Neutrophils % 88.6 % (38.7-73.9); Platelet Count 129 T/CUMM (130-400); Red Blood Count 2.16 MC/CUMM (3.8-5.5); Red Cell Distribution Width 14.3 % (9.3-17.3); White Blood Count 10.1 T/CUMM (4-12)
[2019-12-10] MEDS: fentaNYL INJ 1,250 MCG in SODIUM CHLORIDE 0.9% 225 ML IV PRN ×2 (05:14→13:39)
[2019-12-10 05:36] LABS: Calcium 7.4 MG/DL (8.5-10.1); Osmolality,Calculated 292.4 MOS/KG (273-304)
[2019-12-10] MEDS: MEROPENEM 500 MG in SODIUM CHLORIDE 0.9% 100 ML IV SCH ×3 (05:40→17:51)
[2019-12-10 05:46] LABS: Band Neutrophils 7 % (0-10); Hypochromasia Slight; Lymphocytes 3 % (20-55); Polychromasia Slight; Segmented Neutrophils 89 % (50-85); Total Cells Counted 100
[2019-12-10 05:47] LABS: Microcytosis Slight; Platelet Estimate Adequate
[2019-12-10] MEDS: BISACODYL 5 MG TABLET PO SCH (08:11)
[2019-12-10] MEDS: PANTOPRAZOLE 40 MG VIAL IV SCH (08:11)
[2019-12-10] MEDS: POTASSIUM CHLORIDE 20 MEQ TABLET PO SCH (08:11)
[2019-12-10] MEDS: CHOLECALCIFEROL 1,000 UNIT TABLET PO SCH (08:11)
[2019-12-10] MEDS: CETIRIZINE 10 MG TABLET PO SCH (08:11)
[2019-12-10] MEDS: GABAPENTIN 50 MG/ML 30 ML/BOTTLE NG SCH ×3 (08:12→20:26)
[2019-12-10] MEDS: ASPIRIN CHEW 81 MG TABLET PO SCH (08:12)
[2019-12-10] MEDS: ACETAMINOPHEN 325 MG TABLET PO PRN ×3 (08:21→16:27)
[2019-12-10] MEDS ORDERED: SODIUM CHLORIDE 0.9% 1,000 ML IV PRN (09:08)
[2019-12-10] MEDS: FLUCONAZOLE INJ 400 MG in PREMIX 1 EACH IV SCH (12:10)
[2019-12-10] MEDS: VANCOMYCIN INJ 1,250 MG in SODIUM CHLORIDE 0.9% 250 ML IV SCH (14:31)
[2019-12-10] MEDS: DEXAMETHASONE 4 MG/1 ML VIAL IV SCH (16:24)
[2019-12-10] MEDS: INSULIN GLARGINE 100 UNIT/ML SUBCUT SCH (20:26)
[2019-12-11] MEDS: fentaNYL INJ 1,250 MCG in SODIUM CHLORIDE 0.9% 225 ML IV PRN ×4 (00:06→20:00)
[2019-12-11] MEDS: MEROPENEM 500 MG in SODIUM CHLORIDE 0.9% 100 ML IV SCH ×3 (00:20→11:37)
[2019-12-11] MEDS: VANCOMYCIN INJ 1,250 MG in SODIUM CHLORIDE 0.9% 250 ML IV SCH ×2 (00:37→13:40)
[2019-12-11] MEDS: INSULIN LISPRO 100 UNIT/ML SUBCUT SCH ×4 (00:45→18:22)
[2019-12-11] MEDS: ALBUTEROL INHALER 18 GM INH SCH ×4 (00:46→18:51)
[2019-12-11] MEDS: DEXMEDETOMIDINE 400 MCG in SODIUM CHLORIDE 0.9% 96 ML IV PRN ×4 (03:10→23:49)
[2019-12-11] MEDS: HEPARIN DRIP 25,000 UNITS/500 ML PREMIX IV SCH ×3 (04:31→21:05)
[2019-12-11 05:06] LABS: Basophils % 0.2 % (0.0-0.8); Hematocrit 31.4 VOL% (35.7-47.0); Hemoglobin 9.6 GM/DL (12.0-16.0); Immature Granulocytes % 2.2 %; Immature Granulocytes Absolute 0.27 #; Lymphocytes # 0.4 10*3/uL (1.4-4.0); Lymphocytes % 3.4 % (21.3-54.2); Mean Corpuscular HGB Conc 30.6 GM/DL (32-36); Mean Corpuscular Volume 97.2 FL (87-102); Mean Platelet Volume 11.5 FL (9.6-12.0); Monocytes % 2.5 % (1.7-12.7); Neutrophils % 91.7 % (38.7-73.9); Platelet Count 148 T/CUMM (130-400); Red Blood Count 3.23 MC/CUMM (3.8-5.5); Red Cell Distribution Width 14.9 % (9.3-17.3); White Blood Count 12.2 T/CUMM (4-12)
[2019-12-11 05:15] LABS: Calcium 7.7 MG/DL (8.5-10.1); Osmolality,Calculated 299.7 MOS/KG (273-304)
[2019-12-11 06:15] LABS: Band Neutrophils 4 % (0-10); Lymphocytes 3 % (20-55); Platelet Estimate Decreased; Segmented Neutrophils 91 % (50-85); Total Cells Counted 100
[2019-12-11 06:19] LABS: Anisocytosis 1+; Macrocytosis 1+
[2019-12-11 07:43] LABS: Pt O2 Delivery Device Ventilator
[2019-12-11 07:44] LABS: ABG Base Excess 1.6 MMOL/L (-2.5-2.5); ABG HCO3 25.8 MMOL/L (20-26); ABG Oxygen Saturation 96.4 % (95-100); ABG PCO2 50.6 MM HG (35-48); ABG PH 7.348 (7.35-7.45); ABG PO2 85.6 MM HG (80-95); ABG TCO2 25.6 MMOL/L (23-27)
[2019-12-11] MEDS: PANTOPRAZOLE 40 MG VIAL IV SCH (08:29)
[2019-12-11] MEDS: GABAPENTIN 50 MG/ML 30 ML/BOTTLE NG SCH ×3 (08:29→21:01)
[2019-12-11] MEDS: BISACODYL 5 MG TABLET PO SCH (08:29)
[2019-12-11] MEDS: ASPIRIN CHEW 81 MG TABLET PO SCH (08:30)
[2019-12-11] MEDS: POTASSIUM CHLORIDE 20 MEQ TABLET PO SCH (08:30)
[2019-12-11] MEDS: CETIRIZINE 10 MG TABLET PO SCH (08:30)
[2019-12-11] MEDS: CHOLECALCIFEROL 1,000 UNIT TABLET PO SCH (08:30)
[2019-12-11] MEDS: ACETAMINOPHEN 325 MG TABLET PO PRN ×2 (08:37→12:46)
[2019-12-11] MEDS: FLUCONAZOLE INJ 400 MG in PREMIX 1 EACH IV SCH (11:39)
[2019-12-11] MEDS ORDERED: MICAFUNGIN 100 MG, MICAFUNGIN 50 MG in SODIUM CHLORIDE 0.9% 100 ML IV ONE (12:23)
[2019-12-11] MEDS: AZITHROMYCIN INJ 500 MG in SODIUM CHLORIDE 0.9% 250 ML IV SCH (12:54)
[2019-12-11] MEDS: MICAFUNGIN 150 MG in SODIUM CHLORIDE 0.9% 100 ML IV SCH (14:38)
[2019-12-11] MEDS: CEFEPIME 1,000 MG in SODIUM CHLORIDE 0.9% 100 ML IV SCH ×2 (14:50→21:01)
[2019-12-11] MEDS: DEXAMETHASONE 4 MG/1 ML VIAL IV SCH (18:08)
[2019-12-11] MEDS: INSULIN GLARGINE 100 UNIT/ML SUBCUT SCH (21:01)
[2019-12-12] MEDS: INSULIN LISPRO 100 UNIT/ML SUBCUT SCH ×4 (00:23→18:16)
[2019-12-12] MEDS: VANCOMYCIN INJ 1,250 MG in SODIUM CHLORIDE 0.9% 250 ML IV SCH ×2 (00:23→12:05)
[2019-12-12] MEDS: fentaNYL INJ 1,250 MCG in SODIUM CHLORIDE 0.9% 225 ML IV PRN ×3 (01:11→16:16)
[2019-12-12] MEDS: ALBUTEROL INHALER 18 GM INH SCH ×4 (01:17→18:17)
[2019-12-12] MEDS: CEFEPIME 1,000 MG in SODIUM CHLORIDE 0.9% 100 ML IV SCH ×4 (03:32→20:20)
[2019-12-12 04:23] LABS: Basophils % 0.1 % (0.0-0.8); Hematocrit 29.1 VOL% (35.7-47.0); Hemoglobin 8.8 GM/DL (12.0-16.0); Immature Granulocytes % 1.2 %; Immature Granulocytes Absolute 0.13 #; Lymphocytes # 0.6 10*3/uL (1.4-4.0); Mean Corpuscular HGB Conc 30.2 GM/DL (32-36); Mean Corpuscular Volume 98.6 FL (87-102); Mean Platelet Volume 11.4 FL (9.6-12.0); Monocytes % 3.1 % (1.7-12.7); Neutrophils % 90.6 % (38.7-73.9); Platelet Count 162 T/CUMM (130-400); Red Blood Count 2.95 MC/CUMM (3.8-5.5); Red Cell Distribution Width 14.6 % (9.3-17.3); White Blood Count 11.1 T/CUMM (4-12)
[2019-12-12 04:48] LABS: ABG Base Excess 1.3 MMOL/L (-2.5-2.5); ABG HCO3 27.5 MMOL/L (20-26); ABG PCO2 49.3 MM HG (35-48); ABG PH 7.364 (7.35-7.45); ABG PO2 87.6 MM HG (80-95)
[2019-12-12 04:50] LABS: Calcium 7.5 MG/DL (8.5-10.1); Osmolality,Calculated 306.6 MOS/KG (273-304)
[2019-12-12 04:54] LABS: ABG Oxygen Saturation 96.3 % (95-100)
[2019-12-12 04:59] LABS: Hypochromasia 1+; Lymphocytes 3 % (20-55); Platelet Estimate Adequate; Segmented Neutrophils 95 % (50-85); Total Cells Counted 100
[2019-12-12 05:00] LABS: Microcytosis Slight
[2019-12-12] MEDS: HEPARIN DRIP 25,000 UNITS/500 ML PREMIX IV SCH (07:23)
[2019-12-12] MEDS: CETIRIZINE 10 MG TABLET PO SCH (08:05)
[2019-12-12] MEDS: ASPIRIN CHEW 81 MG TABLET PO SCH (08:05)
[2019-12-12] MEDS: POTASSIUM CHLORIDE 20 MEQ TABLET PO SCH (08:05)
[2019-12-12] MEDS: BISACODYL 5 MG TABLET PO SCH (08:05)
[2019-12-12] MEDS: CHOLECALCIFEROL 1,000 UNIT TABLET PO SCH (08:06)
[2019-12-12] MEDS: GABAPENTIN 50 MG/ML 30 ML/BOTTLE NG SCH ×3 (08:06→20:20)
[2019-12-12] MEDS: PANTOPRAZOLE 40 MG VIAL IV SCH (08:06)
[2019-12-12] MEDS ORDERED: cloNIDine 0.1 MG TABLET PO PRN (11:25)
[2019-12-12] MEDS: amLODIPine 5 MG TABLET PO SCH ×4 (11:36→11:39)
[2019-12-12] MEDS: AZITHROMYCIN INJ 500 MG in SODIUM CHLORIDE 0.9% 250 ML IV SCH (12:10)
[2019-12-12] MEDS: MICAFUNGIN 150 MG in SODIUM CHLORIDE 0.9% 100 ML IV SCH (14:08)
[2019-12-12] MEDS ORDERED: HEPARIN 5,000 UNIT/1 ML VIAL IV ONE (17:13)
[2019-12-12] MEDS: INSULIN GLARGINE 100 UNIT/ML SUBCUT SCH (20:20)
[2019-12-13] MEDS: ALBUTEROL INHALER 18 GM INH SCH ×4 (00:16→20:22)
[2019-12-13] MEDS: VANCOMYCIN INJ 1,250 MG in SODIUM CHLORIDE 0.9% 250 ML IV SCH ×2 (00:16→16:40)
[2019-12-13] MEDS: INSULIN LISPRO 100 UNIT/ML SUBCUT SCH ×4 (00:16→18:53)
[2019-12-13] MEDS: fentaNYL INJ 1,250 MCG in SODIUM CHLORIDE 0.9% 225 ML IV PRN ×3 (01:40→21:15)
[2019-12-13 03:52] LABS: ABG Base Excess 2.1 MMOL/L (-2.5-2.5); ABG HCO3 28.4 MMOL/L (20-26); ABG Oxygen Saturation 94.8 % (95-100); ABG PCO2 52.8 MM HG (35-48); ABG PH 7.348 (7.35-7.45); ABG PO2 77.3 MM HG (80-95)
[2019-12-13] MEDS: CEFEPIME 1,000 MG in SODIUM CHLORIDE 0.9% 100 ML IV SCH ×4 (03:55→20:39)
[2019-12-13 04:42] LABS: Calcium 7.8 MG/DL (8.5-10.1); Osmolality,Calculated 298.7 MOS/KG (273-304)
[2019-12-13] MEDS: ACETAMINOPHEN 325 MG TABLET PO PRN (06:18)
[2019-12-13] MEDS: HEPARIN DRIP 25,000 UNITS/500 ML PREMIX IV SCH ×2 (06:40→16:41)
[2019-12-13] MEDS ORDERED: HEPARIN 5,000 UNIT/1 ML VIAL IV ONE (06:44)
[2019-12-13] MEDS: CETIRIZINE 10 MG TABLET PO SCH (08:24)
[2019-12-13] MEDS: amLODIPine 5 MG TABLET PO SCH (08:24)
[2019-12-13] MEDS: POTASSIUM CHLORIDE 20 MEQ TABLET PO SCH (08:24)
[2019-12-13] MEDS: ASPIRIN CHEW 81 MG TABLET PO SCH (08:24)
[2019-12-13] MEDS: CHOLECALCIFEROL 1,000 UNIT TABLET PO SCH (08:24)
[2019-12-13] MEDS: BISACODYL 5 MG TABLET PO SCH (08:25)
[2019-12-13] MEDS: PANTOPRAZOLE 40 MG VIAL IV SCH (08:25)
[2019-12-13] MEDS: GABAPENTIN 50 MG/ML 30 ML/BOTTLE NG SCH ×3 (08:27→20:39)
[2019-12-13 09:48] LABS: Basophils % 0.2 % (0.0-0.8); Eosinophils # 0.2 10*3/uL (0.0-0.87); Eosinophils % 0.8 % (0.00-10.9); Hematocrit 28.9 VOL% (35.7-47.0); Hemoglobin 9.1 GM/DL (12.0-16.0); Immature Granulocytes % 1.5 %; Lymphocytes # 0.6 10*3/uL (1.4-4.0); Lymphocytes % 2.9 % (21.3-54.2); Mean Corpuscular HGB Conc 31.5 GM/DL (32-36); Monocytes % 2.3 % (1.7-12.7); Neutrophils % 92.3 % (38.7-73.9); Platelet Count 160 T/CUMM (130-400); Red Blood Count 2.98 MC/CUMM (3.8-5.5); Red Cell Distribution Width 14.7 % (9.3-17.3); White Blood Count 19.8 T/CUMM (4-12)
[2019-12-13 10:21] LABS: Band Neutrophils 13 % (0-10); Lymphocytes 2 % (20-55); Segmented Neutrophils 84 % (50-85); Total Cells Counted 100
[2019-12-13 10:22] LABS: Hypochromasia 1+
[2019-12-13 10:23] LABS: Macrocytosis Slight; Platelet Estimate Adequate
[2019-12-13] MEDS: AZITHROMYCIN INJ 500 MG in SODIUM CHLORIDE 0.9% 250 ML IV SCH (12:44)
[2019-12-13] MEDS: MICAFUNGIN 150 MG in SODIUM CHLORIDE 0.9% 100 ML IV SCH (15:21)
[2019-12-13] MEDS: MAGNESIUM SULF RIDER 2 GM in PREMIX 1 EACH IV PRN (18:20)
[2019-12-13] MEDS: INSULIN GLARGINE 100 UNIT/ML SUBCUT SCH (20:38)
[2019-12-14] MEDS: INSULIN LISPRO 100 UNIT/ML SUBCUT SCH ×5 (00:36→23:29)
[2019-12-14] MEDS: VANCOMYCIN INJ 1,250 MG in SODIUM CHLORIDE 0.9% 250 ML IV SCH ×2 (00:36→23:14)
[2019-12-14] MEDS: ALBUTEROL INHALER 18 GM INH SCH ×4 (00:37→20:20)
[2019-12-14] MEDS: CEFEPIME 1,000 MG in SODIUM CHLORIDE 0.9% 100 ML IV SCH ×4 (02:46→20:20)
[2019-12-14] MEDS: HEPARIN DRIP 25,000 UNITS/500 ML PREMIX IV SCH ×3 (02:46→23:10)
[2019-12-14 04:11] LABS: ABG HCO3 25.8 MMOL/L (20-26); ABG Oxygen Saturation 70.5 % (95-100); ABG PCO2 45.6 MM HG (35-48); ABG PH 7.386 (7.35-7.45); ABG TCO2 25.5 MMOL/L (23-27); Allen Test Positive; Pt O2 Delivery Device Ventilator
[2019-12-14 04:25] LABS: ABG PO2 37.9 MM HG (80-95)
[2019-12-14 05:01] LABS: ABG Base Excess 2.1 MMOL/L (-2.5-2.5); ABG HCO3 26.2 MMOL/L (20-26); ABG Oxygen Saturation 95.5 % (95-100); ABG PCO2 39.7 MM HG (35-48); ABG PH 7.431 (7.35-7.45); ABG PO2 71.6 MM HG (80-95); ABG TCO2 24.4 MMOL/L (23-27); Allen Test Positive; Pt O2 Delivery Device Ventilator
[2019-12-14 05:12] LABS: Basophils % 0.1 % (0.0-0.8); Eosinophils # 0.3 10*3/uL (0.0-0.87); Eosinophils % 1.9 % (0.00-10.9); Hematocrit 24.6 VOL% (35.7-47.0); Hemoglobin 7.5 GM/DL (12.0-16.0); Immature Granulocytes % 0.9 %; Immature Granulocytes Absolute 0.14 #; Lymphocytes # 0.9 10*3/uL (1.4-4.0); Lymphocytes % 5.8 % (21.3-54.2); Mean Corpuscular HGB Conc 30.5 GM/DL (32-36); Mean Corpuscular Volume 98.8 FL (87-102); Monocytes % 1.3 % (1.7-12.7); NRBC # 0.02 10*3/uL; Platelet Count 146 T/CUMM (130-400); Red Blood Count 2.49 MC/CUMM (3.8-5.5); Red Cell Distribution Width 14.6 % (9.3-17.3); White Blood Count 15.7 T/CUMM (4-12)
[2019-12-14 05:35] LABS: Bilirubin,Total 0.8 MG/DL (0.2-1.0); Calcium 7.5 MG/DL (8.5-10.1); Osmolality,Calculated 299.6 MOS/KG (273-304); Total Protein 5.2 G/DL (6.4-8.3)
[2019-12-14 05:54] LABS: Band Neutrophils 9 % (0-10); Eosinophils 2 % (0-10); Hypochromasia 1+; Lymphocytes 2 % (20-55); Segmented Neutrophils 87 % (50-85); Total Cells Counted 100
[2019-12-14 05:55] LABS: Macrocytosis 1+; Polychromasia Slight
[2019-12-14 05:56] LABS: Platelet Estimate Adequate
[2019-12-14] MEDS: fentaNYL INJ 1,250 MCG in SODIUM CHLORIDE 0.9% 225 ML IV PRN ×3 (06:00→23:40)
[2019-12-14] MEDS: amLODIPine 5 MG TABLET PO SCH (09:15)
[2019-12-14] MEDS: CHOLECALCIFEROL 1,000 UNIT TABLET PO SCH (09:15)
[2019-12-14] MEDS: BISACODYL 5 MG TABLET PO SCH (09:15)
[2019-12-14] MEDS: POTASSIUM CHLORIDE 20 MEQ TABLET PO SCH (09:16)
[2019-12-14] MEDS: CETIRIZINE 10 MG TABLET PO SCH (09:16)
[2019-12-14] MEDS: PANTOPRAZOLE 40 MG VIAL IV SCH (09:16)
[2019-12-14] MEDS: ASPIRIN CHEW 81 MG TABLET PO SCH (09:16)
[2019-12-14] MEDS: GABAPENTIN 50 MG/ML 30 ML/BOTTLE NG SCH ×3 (09:21→20:20)
[2019-12-14] MEDS ORDERED: FUROSEMIDE 40 MG/4 ML VIAL IV ONE (09:30)
[2019-12-14] MEDS: AZITHROMYCIN INJ 500 MG in SODIUM CHLORIDE 0.9% 250 ML IV SCH (12:05)
[2019-12-14] MEDS: ACETAMINOPHEN 325 MG TABLET PO PRN (12:19)
[2019-12-14] MEDS: MICAFUNGIN 50 MG, MICAFUNGIN 100 MG in SODIUM CHLORIDE 0.9% 100 ML IV SCH (13:55)
[2019-12-14] MEDS: INSULIN GLARGINE 100 UNIT/ML SUBCUT SCH (20:20)
[2019-12-15] MEDS: ALBUTEROL INHALER 18 GM INH SCH ×4 (00:30→20:30)
[2019-12-15] MEDS: CEFEPIME 1,000 MG in SODIUM CHLORIDE 0.9% 100 ML IV SCH ×2 (04:25→08:38)
[2019-12-15 04:51] LABS: Allen Test Positive; Pt O2 Delivery Device Ventilator
[2019-12-15 04:52] LABS: ABG Base Excess 1.1 MMOL/L (-2.5-2.5); ABG HCO3 25.4 MMOL/L (20-26); ABG Oxygen Saturation 94.8 % (95-100); ABG PCO2 46.5 MM HG (35-48); ABG PH 7.367 (7.35-7.45); ABG PO2 73.8 MM HG (80-95); ABG TCO2 25.1 MMOL/L (23-27)
[2019-12-15 05:29] LABS: Basophils % 0.1 % (0.0-0.8); Eosinophils # 0.2 10*3/uL (0.0-0.87); Eosinophils % 1.2 % (0.00-10.9); Hematocrit 25.1 VOL% (35.7-47.0); Hemoglobin 7.5 GM/DL (12.0-16.0); Immature Granulocytes % 1.2 %; Immature Granulocytes Absolute 0.18 #; Lymphocytes # 0.9 10*3/uL (1.4-4.0); Lymphocytes % 5.6 % (21.3-54.2); Mean Corpuscular HGB Conc 29.9 GM/DL (32-36); Mean Corpuscular Volume 99.6 FL (87-102); Mean Platelet Volume 11.3 FL (9.6-12.0); Monocytes % 1.3 % (1.7-12.7); Neutrophils % 90.6 % (38.7-73.9); Platelet Count 163 T/CUMM (130-400); Red Blood Count 2.52 MC/CUMM (3.8-5.5); Red Cell Distribution Width 14.9 % (9.3-17.3); White Blood Count 15.4 T/CUMM (4-12)
[2019-12-15] MEDS: INSULIN LISPRO 100 UNIT/ML SUBCUT SCH ×3 (05:30→17:52)
[2019-12-15 05:47] LABS: Calcium 7.6 MG/DL (8.5-10.1); Osmolality,Calculated 304.4 MOS/KG (273-304)
[2019-12-15] MEDS: POTASSIUM CHLORIDE RIDER 20 MEQ in PREMIX 1 EACH IV PRN (06:22)
[2019-12-15 06:28] LABS: Band Neutrophils 7 % (0-10); Eosinophils 1 % (0-10); Hypochromasia 1+; Lymphocytes 2 % (20-55); Segmented Neutrophils 89 % (50-85); Total Cells Counted 100
[2019-12-15 06:29] LABS: Anisocytosis 1+; Platelet Estimate Adequate; Polychromasia Slight
[2019-12-15] MEDS: fentaNYL INJ 1,250 MCG in SODIUM CHLORIDE 0.9% 225 ML IV PRN (08:01)
[2019-12-15] MEDS: CETIRIZINE 10 MG TABLET PO SCH (08:31)
[2019-12-15] MEDS: CHOLECALCIFEROL 1,000 UNIT TABLET PO SCH (08:31)
[2019-12-15] MEDS: amLODIPine 5 MG TABLET PO SCH (08:32)
[2019-12-15] MEDS: ASPIRIN CHEW 81 MG TABLET PO SCH (08:32)
[2019-12-15] MEDS: POTASSIUM CHLORIDE 20 MEQ TABLET PO SCH (08:32)
[2019-12-15] MEDS: PANTOPRAZOLE 40 MG VIAL IV SCH (08:34)
[2019-12-15] MEDS: GABAPENTIN 50 MG/ML 30 ML/BOTTLE NG SCH ×3 (08:44→20:31)
[2019-12-15] MEDS: AZITHROMYCIN INJ 500 MG in SODIUM CHLORIDE 0.9% 250 ML IV SCH (12:03)
[2019-12-15] MEDS: MICAFUNGIN 50 MG, MICAFUNGIN 100 MG in SODIUM CHLORIDE 0.9% 100 ML IV SCH (13:47)
[2019-12-15] MEDS ORDERED: CEFEPIME 1,000 MG in DEXTROSE 5% 100 ML IV SCH (15:00)
[2019-12-15] MEDS: FUROSEMIDE 40 MG/4 ML VIAL IV SCH (16:27)
[2019-12-15] MEDS: HEPARIN DRIP 25,000 UNITS/500 ML PREMIX IV SCH ×2 (16:44→19:20)
[2019-12-15] MEDS: fentaNYL INJ 1,250 MCG in DEXTROSE 5% 225 ML IV PRN (16:50)
[2019-12-15] MEDS: CEFEPIME 1,000 MG in DEXTROSE 5% 100 ML IV SCH (16:56)
[2019-12-15] MEDS: ACETAMINOPHEN 325 MG TABLET PO PRN (20:30)
[2019-12-15] MEDS: INSULIN GLARGINE 100 UNIT/ML SUBCUT SCH (20:30)
[2019-12-16] MEDS: CEFEPIME 1,000 MG in DEXTROSE 5% 100 ML IV SCH ×2 (00:09→05:14)
[2019-12-16] MEDS: INSULIN LISPRO 100 UNIT/ML SUBCUT SCH ×4 (00:25→18:00)
[2019-12-16] MEDS: VANCOMYCIN INJ 1,250 MG in SODIUM CHLORIDE 0.9% 250 ML IV SCH (00:26)
[2019-12-16] MEDS: fentaNYL INJ 1,250 MCG in DEXTROSE 5% 225 ML IV PRN ×3 (02:01→20:35)
[2019-12-16 03:28] LABS: ABG HCO3 26.3 MMOL/L (20-26); ABG Oxygen Saturation 93.4 % (95-100); ABG PCO2 45.7 MM HG (35-48); ABG PH 7.378 (7.35-7.45); ABG PO2 69.5 MM HG (80-95); ABG TCO2 27.7 MMOL/L (23-27); Allen Test Positive; Pt O2 Delivery Device Ventilator
[2019-12-16 04:58] LABS: Basophils % 0.2 % (0.0-0.8); Eosinophils # 0.2 10*3/uL (0.0-0.87); Eosinophils % 1.6 % (0.00-10.9); Hematocrit 25.4 VOL% (35.7-47.0); Hemoglobin 7.8 GM/DL (12.0-16.0); Immature Granulocytes % 1.6 %; Immature Granulocytes Absolute 0.24 #; Lymphocytes # 0.7 10*3/uL (1.4-4.0); Lymphocytes % 4.4 % (21.3-54.2); Mean Corpuscular HGB Conc 30.7 GM/DL (32-36); Mean Corpuscular Volume 97.3 FL (87-102); Mean Platelet Volume 11.5 FL (9.6-12.0); Monocytes % 1.9 % (1.7-12.7); NRBC # 0.04 10*3/uL; Neutrophils % 90.3 % (38.7-73.9); Platelet Count 158 T/CUMM (130-400); Red Blood Count 2.61 MC/CUMM (3.8-5.5); Red Cell Distribution Width 15.2 % (9.3-17.3); White Blood Count 15.3 T/CUMM (4-12)
[2019-12-16 04:59] LABS: Calcium 7.5 MG/DL (8.5-10.1); Osmolality,Calculated 295.1 MOS/KG (273-304)
[2019-12-16] MEDS: ALBUTEROL INHALER 18 GM INH SCH (05:13)
[2019-12-16 05:51] LABS: Band Neutrophils 7 % (0-10); Hypochromasia 1+; Lymphocytes 1 % (20-55); Metamyelocytes 1 %; Segmented Neutrophils 90 % (50-85); Total Cells Counted 100
[2019-12-16 05:52] LABS: Macrocytosis Slight; Platelet Estimate Adequate; Polychromasia Slight
[2019-12-16] MEDS: FUROSEMIDE 40 MG/4 ML VIAL IV SCH ×2 (08:59→16:26)
[2019-12-16] MEDS: PANTOPRAZOLE 40 MG VIAL IV SCH (08:59)
[2019-12-16] MEDS: amLODIPine 5 MG TABLET PO SCH (09:00)
[2019-12-16] MEDS: ASPIRIN CHEW 81 MG TABLET PO SCH (09:00)
[2019-12-16] MEDS: POTASSIUM CHLORIDE 20 MEQ TABLET PO SCH (09:00)
[2019-12-16] MEDS: CETIRIZINE 10 MG TABLET PO SCH (09:00)
[2019-12-16] MEDS: ACETAMINOPHEN 325 MG TABLET PO PRN ×2 (09:00→16:29)
[2019-12-16] MEDS: CHOLECALCIFEROL 1,000 UNIT TABLET PO SCH (09:00)
[2019-12-16] MEDS: GABAPENTIN 50 MG/ML 30 ML/BOTTLE NG SCH ×3 (09:01→20:30)
[2019-12-16] MEDS: AMPICILLIN INJ 1,000 MG in SODIUM CHLORIDE 0.9% 100 ML IV SCH ×2 (12:22→18:33)
[2019-12-16] MEDS: MICAFUNGIN 50 MG, MICAFUNGIN 100 MG in SODIUM CHLORIDE 0.9% 100 ML IV SCH (14:42)
[2019-12-16] MEDS: HEPARIN DRIP 25,000 UNITS/500 ML PREMIX IV SCH (16:31)
[2019-12-16] MEDS: INSULIN GLARGINE 100 UNIT/ML SUBCUT SCH (20:29)
[2019-12-17] MEDS: AMPICILLIN INJ 1,000 MG in SODIUM CHLORIDE 0.9% 100 ML IV SCH ×4 (00:39→18:05)
[2019-12-17] MEDS: ACETAMINOPHEN 325 MG TABLET PO PRN ×2 (00:45→20:44)
[2019-12-17] MEDS: ALBUTEROL INHALER 18 GM INH SCH ×6 (01:31→18:05)
[2019-12-17] MEDS: INSULIN LISPRO 100 UNIT/ML SUBCUT SCH ×4 (01:31→18:00)
[2019-12-17 04:11] LABS: ABG Base Excess 3.5 MMOL/L (-2.5-2.5); ABG HCO3 28.6 MMOL/L (20-26); ABG Oxygen Saturation 91.5 % (95-100); ABG PH 7.411 (7.35-7.45); Allen Test Positive; Pt O2 Delivery Device Ventilator
[2019-12-17 05:14] LABS: Basophils % 0.2 % (0.0-0.8); Eosinophils # 0.3 10*3/uL (0.0-0.87); Eosinophils % 2.3 % (0.00-10.9); Hematocrit 21.4 VOL% (35.7-47.0); Hemoglobin 6.5 GM/DL (12.0-16.0); Immature Granulocytes % 2.6 %; Immature Granulocytes Absolute 0.35 #; Lymphocytes % 7.7 % (21.3-54.2); Mean Corpuscular HGB Conc 30.4 GM/DL (32-36); Mean Corpuscular Volume 99.5 FL (87-102); Mean Platelet Volume 11.7 FL (9.6-12.0); Monocytes % 2.4 % (1.7-12.7); NRBC # 0.03 10*3/uL; Neutrophils % 84.8 % (38.7-73.9); Platelet Count 151 T/CUMM (130-400); Red Blood Count 2.15 MC/CUMM (3.8-5.5); Red Cell Distribution Width 15.2 % (9.3-17.3); White Blood Count 13.3 T/CUMM (4-12)
[2019-12-17] MEDS: fentaNYL INJ 1,250 MCG in DEXTROSE 5% 225 ML IV PRN ×2 (05:37→15:50)
[2019-12-17 05:43] LABS: Albumin 0.9 G/DL (3.4-5.0); Calcium 7.6 MG/DL (8.5-10.1); Osmolality,Calculated 295.1 MOS/KG (273-304); Total Protein 5.8 G/DL (6.4-8.3)
[2019-12-17 05:57] LABS: Ferritin 1952.3 ng/ml (8-252)
[2019-12-17] MEDS ORDERED: SODIUM CHLORIDE 0.9% 1,000 ML IV PRN (07:31)
[2019-12-17 08:31] LABS: Band Neutrophils 10 % (0-10); Eosinophils 1 % (0-10); Lymphocytes 13 % (20-55); Segmented Neutrophils 72 % (50-85); Total Cells Counted 100
[2019-12-17 08:39] LABS: Platelet Estimate Adequate
[2019-12-17] MEDS: FUROSEMIDE 40 MG/4 ML VIAL IV SCH ×2 (08:56→15:51)
[2019-12-17] MEDS: CHOLECALCIFEROL 1,000 UNIT TABLET PO SCH (08:57)
[2019-12-17] MEDS: amLODIPine 5 MG TABLET PO SCH (08:57)
[2019-12-17] MEDS: ASPIRIN CHEW 81 MG TABLET PO SCH (08:57)
[2019-12-17] MEDS: POTASSIUM CHLORIDE 20 MEQ TABLET PO SCH (08:57)
[2019-12-17] MEDS: PANTOPRAZOLE 40 MG VIAL IV SCH (08:57)
[2019-12-17] MEDS: CETIRIZINE 10 MG TABLET PO SCH (08:57)
[2019-12-17] MEDS: GABAPENTIN 50 MG/ML 30 ML/BOTTLE NG SCH ×3 (08:57→20:44)
[2019-12-17 13:08] VITALS: BP 119/63
[2019-12-17] MEDS: HEPARIN DRIP 25,000 UNITS/500 ML PREMIX IV SCH ×2 (13:14→16:13)
[2019-12-17] MEDS: MICAFUNGIN 50 MG, MICAFUNGIN 100 MG in SODIUM CHLORIDE 0.9% 100 ML IV SCH (15:22)
[2019-12-17] MEDS: INSULIN GLARGINE 100 UNIT/ML SUBCUT SCH (20:40)
[2019-12-18] MEDS: ALBUTEROL INHALER 18 GM INH SCH ×2 (00:10→09:00)
[2019-12-18] MEDS: AMPICILLIN INJ 1,000 MG in SODIUM CHLORIDE 0.9% 100 ML IV SCH ×2 (00:15→06:15)
[2019-12-18] MEDS: INSULIN LISPRO 100 UNIT/ML SUBCUT SCH ×3 (00:15→12:00)
[2019-12-18 05:01] LABS: ABG Base Excess 4.3 MMOL/L (-2.5-2.5); ABG HCO3 29.8 MMOL/L (20-26); ABG Oxygen Saturation 89.2 % (95-100); ABG PCO2 49.6 MM HG (35-48); ABG PH 7.397 (7.35-7.45); ABG TCO2 31.4 MMOL/L (23-27); Allen Test Positive; Pt O2 Delivery Device Ventilator
[2019-12-18 05:01] LABS: Calcium 7.6 MG/DL (8.5-10.1); Osmolality,Calculated 290.4 MOS/KG (273-304)
[2019-12-18] MEDS: ACETAMINOPHEN 325 MG TABLET PO PRN ×2 (05:04→10:36)
[2019-12-18 06:47] LABS: Total Cells Counted 100
[2019-12-18 07:23] LABS: Band Neutrophils 23 % (0-10); Eosinophils 1 % (0-10); Lymphocytes 3 % (20-55); Metamyelocytes 1 %; Nucleated Red Blood Cells 2 (0-5); Segmented Neutrophils 69 % (50-85)
[2019-12-18 07:39] LABS: Hematocrit 29.4 VOL% (35.7-47.0); Hemoglobin 9.1 GM/DL (12.0-16.0); Mean Corpuscular Volume 94.8 FL (87-102); Red Cell Distribution Width 16.3 % (9.3-17.3)
[2019-12-18 07:40] LABS: Basophils % 0.4 % (0.0-0.8); Eosinophils % 1.7 % (0.00-10.9); Lymphocytes % 6.2 % (21.3-54.2); Mean Platelet Volume 11.7 FL (9.6-12.0); Monocytes % 1.9 % (1.7-12.7); Neutrophils % 85.1 % (38.7-73.9); Platelet Count 125 T/CUMM (130-400)
[2019-12-18 07:41] LABS: Basophils # 0.1 10*3/uL (0.0-0.2); Eosinophils # 0.3 10*3/uL (0.0-0.87); Immature Granulocytes % 4.7 %; Lymphocytes # 0.9 10*3/uL (1.4-4.0); NRBC # 0.18 10*3/uL
[2019-12-18 07:43] LABS: Anisocytosis 1+; Band Neutrophils 6 % (0-10); Basophilic Stippling Slight; Eosinophils 1 % (0-10); Lymphocytes 4 % (20-55); Macrocytosis 1+; Metamyelocytes 3 %; Platelet Estimate Decreased; Polychromasia 1+; Segmented Neutrophils 84 % (50-85); Total Cells Counted 100
[2019-12-18] MEDS: POTASSIUM CHLORIDE 20 MEQ TABLET PO SCH (08:25)
[2019-12-18] MEDS: CETIRIZINE 10 MG TABLET PO SCH (08:25)
[2019-12-18] MEDS: PANTOPRAZOLE 40 MG VIAL IV SCH (08:25)
[2019-12-18] MEDS: ASPIRIN CHEW 81 MG TABLET PO SCH (08:25)
[2019-12-18] MEDS: CHOLECALCIFEROL 1,000 UNIT TABLET PO SCH (08:25)
[2019-12-18] MEDS: GABAPENTIN 50 MG/ML 30 ML/BOTTLE NG SCH (08:28)
[2019-12-18] MEDS: HEPARIN DRIP 25,000 UNITS/500 ML PREMIX IV SCH (08:31)
[2019-12-18] MEDS ORDERED: LACTATED RINGERS 1,000 ML IV ONE (09:22)
[2019-12-18] MEDS: fentaNYL INJ 1,250 MCG in DEXTROSE 5% 225 ML IV PRN (11:20)
[2019-12-18 12:09] LABS: Amorphous Crystals,Urine Occasional /HPF (Few); Apearance,Urine CLOUDY (Clear); Bilirubin,Urine Negative (Negative); Blood, Urine Small mg/dL (Negative); Glucose,Urine (UA) Negative (Negative); Ketones,Urine Negative (Negative); Nitrite,Urine Negative (Negative); Protein,Urine 100 MG/DL; RBC,Urine 33 /HPF (0-4); Squamous Epithelial Cell,Urine Occasional /HPF (0-10); Urine Color Yellow (Yellow); Urine Specific Gravity 1.021 (1.001-1.035); WBC,Urine 49 /HPF (0-6)
[2019-12-18] MEDS ORDERED: FUROSEMIDE 100 MG/10 ML VIAL ONE (12:20)
[2019-12-18] MEDS ORDERED: FUROSEMIDE 40 MG/4 ML VIAL IV ONE (12:21)
[2019-12-18] MEDS ORDERED: HYDROCORTISONE 100 MG VIAL IV SCH (12:30)
== END 2019-12-18 12:24 | disposition expired | DRG 207 ==
LOC: N.2E 11-28 01:54 → SUATTDRO 11-28 01:54 → N.CC 12-01 10:45
PROVIDERS: ADMIT Internal Medicine; ATTEND Family Medicine